=== PATIENT | female | born 1995 | race Caucasian/White ===

== ENCOUNTER 2019-04-06 15:24 | Emergency (ER) | payer SELFPAY ==
[~2019-04-06] VITALS: Ht 172.7 cm; Wt 80.9 kg
[2019-04-06 16:22] LABS: HEMATOCRIT 46.5 % (36.0-47.0); HEMOGLOBIN 15.2 g/dl (12.0-15.5); MEAN CORPUSCULAR HEMOGLOBIN 33.2 pg (27.0-33.0); MEAN CORPUSCULAR HGB CONC 32.7 g/dl (32.0-36.5); MEAN CORPUSCULAR VOLUME 101.5 fl (80.0-96.0); PLATELET COUNT, AUTOMATED 303 10^3/uL (150-450); RED BLOOD COUNT 4.58 10^6/uL (4.00-5.40); WHITE BLOOD COUNT 4.3 10^3/uL (4.0-10.0)
[2019-04-06 16:34] LABS: ACETAMINOPHEN LEVEL < 2.0 UG/ML (10.0-30.0); ALBUMIN 4.4 GM/DL (3.2-5.2); ALT/SGPT 33 U/L (12-78); BILIRUBIN,DIRECT < 0.1 MG/DL (0.0-0.2); BILIRUBIN,TOTAL 0.1 MG/DL (0.2-1.0); BLOOD UREA NITROGEN 10 MG/DL (7-18); CALCIUM LEVEL 8.8 MG/DL (8.5-10.1); CARBON DIOXIDE LEVEL 25 MEQ/L (21-32); CHLORIDE LEVEL 111 MEQ/L (98-107); CREATININE FOR GFR 0.76 MG/DL (0.55-1.30); ETHYL ALCOHOL (ETHANOL) 0.397 % (0.000-0.010); GLOMERULAR FILTRATION RATE > 60.0 (>60); GLUCOSE, FASTING 90 MG/DL (70-100); POTASSIUM SERUM 4.2 MEQ/L (3.5-5.1); SALICYLATE LEVEL 2.6 MG/DL (5.0-30.0); SODIUM LEVEL 144 MEQ/L (136-145); TOTAL PROTEIN 8.3 GM/DL (6.4-8.2)
--- NOTE | 2019-04-06 17:00 | REP ---
CT facial bones: 04/06/2019. Indication: Face trauma. Comparison: None. Technique: Unenhanced axial CT images of the facial bones were performed with coronal and sagittal reconstructions provided. Findings: There is a roseann apical lucency surrounding the right central maxillary incisor with questionable adjacent fracture through the anterior cortex and anterior spine of the maxilla. Age indeterminate nondisplaced anterior nasal bone fractures are present. No acute ocular or intraorbital abnormalities are present. No additional facial bone fractures are present. There is no significant fluid within the paranasal sinuses or mastoid air cells. Impression: Suspected nondisplaced fracture through the most anterior aspect of the maxilla as described. Age indeterminate nondisplaced anterior nasal bone fractures. Electronically Signed by Miguel Farmer DO 04/06/2019 04:51 P
[2019-04-06 17:30] VITALS: BP 144/90
== END 2019-04-06 17:35 | disposition home or self-care (01) ==
LOC: M ED 15:24 → EDBD 15:24 → M ED 17:35
DX: F10.220 Alcohol dependence with intoxication, uncomplicated (principal); S02.2XXB Fracture of nasal bones, initial encounter for open fracture; W01.0XXA Fall on same level from slipping, tripping and stumbling without subsequent striking against object, initial encounter; Y92.9 Unspecified place or not applicable; Y93.9 Activity, unspecified; F17.200 Nicotine dependence, unspecified, uncomplicated
CPT/HCPCS: 36415; 70486; 80048; 80076; 84443; 85027; 99284; G0480